=== PATIENT | male | born 1965 | race Caucasian/White ===

== ENCOUNTER 2020-08-08 16:02 | Emergency (ER) | payer BC, OTHER | END 2020-08-08 16:37 | disposition home or self-care (01) | LOC: JVIRT 16:02 | DX: Z03.818 Encounter for observation for suspected exposure to other biological agents ruled out (principal) | CPT/HCPCS: C9803; Q3014-GT; U0003 ==

== ENCOUNTER 2020-09-06 10:42 | Emergency (ER) | payer BC, OTHER | END 2020-09-06 13:31 | disposition home or self-care (01) | LOC: JVIRT 10:42 | DX: Z11.59 Encounter for screening for other viral diseases (principal) | CPT/HCPCS: C9803; Q3014-GT; U0003 ==